=== PATIENT | female | born 1960 | race Caucasian/White ===

== ENCOUNTER → 2022-01-30 | Outpatient (CLI) | payer BC ==
[~2022-01-30] MED LIST: CATHETER FLUSH 10 ML SYR IV PRN; HOLD METFORMIN - RECEIVED CONTRAST 20 ML VIAL IV SCH; IOHEXOL 350 MG/ML 150 ML (OMNIPAQUE 350) VIAL IV ONE; NS 100 ML (IVPB) BAG IV ONE
--- NOTE | 2022-01-30 14:17 | Diagnostic Imaging Report ---
PROCEDURE: CT angiography of the chest with contrast. TECHNIQUE: Multiple contiguous axial images were obtained through the chest after uneventful bolus administration of intravenous contrast. 3D reconstructed CTA MIP acquisitions were also performed. Auto Exposure Controls were utilized during the CT exam to meet ALARA standards for radiation dose reduction. INDICATION: Chest pain. Elevated D-dimer. COMPARISON: None. FINDINGS: No abnormal intraluminal filling defect is seen to the first subsegmental level of the pulmonary arteries. Main pulmonary arterial trunk is enlarged and measures 4 cm in diameter. Thoracic aorta is normal in course and caliber. By NASCET criteria, there is no focal significant stenosis. There is no evidence of dissection or aneurysm. Heart size is within normal limits. There is no large pericardial effusion. No pathologically enlarged or morphologically abnormal adenopathy is seen within the mediastinum, mima, nor axilla. Evaluation of the lung lara demonstrates no focal consolidation, large effusion, nor pneumothorax. No suspicious pulmonary nodules or masses are seen. Osseous structures show age-related degenerative changes. No lytic or blastic bony lesions are seen. Included portions of the upper abdomen show multiple hypodensities within the liver. Dominant lesion is seen within the right lobe and is only partially included in the [id number]. It measures 2 cm in diameter. IMPRESSION: 1. No pulmonary embolus. 2. No other acute cardiopulmonary process. 3. Enlargement of the main pulmonary arterial trunk. Findings can be seen with underlying pulmonary arterial hypertension. 4. Multiple hypodensities within the liver. While these may be on the basis of cysts, these are incompletely characterized on this exam. Correlation with pre and post contrast CT of the abdomen is recommended. Dictated by: Dictated on workstation # [id number]
== END ==
LOC: RAD FS 13:15
PROVIDERS: ATTEND Nurse Practitioner Family
DX: I28.8 Other diseases of pulmonary vessels (principal); R79.1 Abnormal coagulation profile
CPT/HCPCS: 71275; Q9967

== ENCOUNTER → 2022-02-06 | Outpatient (CLI) | payer BC ==
[~2022-02-06] MED LIST changes: +IOHEXOL 350 MG/ML 100 ML (OMNIPAQUE 350) VIAL IV ONE; -IOHEXOL 350 MG/ML 150 ML (OMNIPAQUE 350) VIAL IV ONE
--- NOTE | 2022-02-06 15:09 | Diagnostic Imaging Report ---
PROCEDURE: CT abdomen with and without contrast. TECHNIQUE: Multiple contiguous axial CT images of the abdomen were obtained prior to and after intravenous administration of iodinated contrast. Auto Exposure Controls were utilized during the CT exam to meet ALARA standards for radiation dose reduction. INDICATION: Abnormal appearance of liver on recent CT study. There is mild low-density throughout the liver suggestive of steatosis. The left lobe is small. There are multiple circumscribed fluid density nodules in the liver. This includes a cluster of presumed cyst in the left lobe measuring up to approximately 1.3 cm in size. There is a dominant presumed cyst adjacent to and somewhat encircling the left portal vein branch measuring 2.4 cm in diameter. Additional small nodules are seen in the periphery of the right lobe. There is a small hiatal hernia. Gallbladder is surgically absent. No pancreatic, adrenal gland or splenic abnormality is identified. There are multiple subcentimeter renal cortical cysts bilaterally with a dominant 1.6 cm cyst in the posterior aspect of the mid left kidney. There is no free fluid or evidence of pathologic adenopathy. IMPRESSION: There is hepatic steatosis with multiple circumscribed fluid density nodules involving the liver and kidneys. These are most compatible with cysts. If concern persists, ultrasound may be of use to confirm a cystic nature. Otherwise, there is no acute abnormality. Dictated by: Dictated on workstation # [id number]
== END ==
LOC: RAD FS 14:00
PROVIDERS: ATTEND Nurse Practitioner Family
DX: K76.0 Fatty (change of) liver, not elsewhere classified (principal)
CPT/HCPCS: 74170; Q9967